=== PATIENT | male | born 1980 | race Asian ===

== ENCOUNTER 2016-08-31 17:05 | Emergency (ER) | payer SELFPAY ==
--- NOTE | 2016-09-08 09:05 | ER ---
ADMIT: 08/31/2016 RM/LOC: ER [facility] MR#: [id number] [address] [id number] [place] [address] Emergency Room Report SEX: M AGE: 35 : 1980 DATE: 08/31/2016 TIME: 1705 Please refer to my T-sheet for complete H and P. HISTORY OF PRESENT ILLNESS: Briefly, the patient is a 35-year-old, who comes in with back pain. It has happened for about a year on and off. He does the same thing at work. He says he moves in the same direction. He works at [employer]. He said that he missed a day and a half. He comes in because it is still giving him problems. The last week, it had been worse. No loss of bowel or bladder control. No numbness or tingling. No recent trauma, just where he twists. PHYSICAL EXAMINATION: VITAL SIGNS: Stable. BACK: Shows diffuse tenderness. No neurologic findings. EMERGENCY DEPARTMENT COURSE: Uneventful. I had a long discussion. He is ready for discharge. ASSESSMENT: 1. Acute low back strain. 2. Chronic back pain for a year. PLAN: Rest, ice, elevate. Flexeril 10, they gave him a script for 15. I wrote a note that he was seen in the ER today. I want him to follow up with Dr. Short next week. Jesus Torre MD/ trell JOB #: [id number] CC: Jesus Torre MD, Attending Physician Rod Short MD, Family Physician
== END 2016-08-31 18:15 | disposition home or self-care (01) ==
LOC: ER 17:05
DX: S39.012A Strain of muscle, fascia and tendon of lower back, initial encounter (principal); G89.29 Other chronic pain; F17.210 Nicotine dependence, cigarettes, uncomplicated; X50.0XXA Overexertion from strenuous movement or load, initial encounter